=== PATIENT | male | born 1930 | race Caucasian/White ===

== ENCOUNTER 2016-11-29 14:45 | Inpatient (IN) | payer OTHER ==
[~2016-11-29] VITALS: Ht 182.9 cm; Wt 67.0 kg
[~2016-11-29 14:45] MED LIST: HYDROCODON-ACE1 EAC7 PO; NAPROXEN500 MG PO
[2016-11-29 15:13] LABS: EOSINOPHIL (%) 0 % (0-5); HEMATOCRIT 39.1 % (38.0-50.0); IMMATURE GRANULOCYTE COUNT 0.1 K/uL; INSTRUMENT ABS NEUTROPHIL CT 7.6 K/uL; LYMPHOCYTE COUNT 0.8 K/uL (1.0-2.8); MCH 31.3 PG (29.0-34.0); MCHC 37.3 G/DL (30.0-36.0); MCV 83.9 FL (86-99); MEAN PLAT.VOLUME 7.6 uM^3 (9.0-12.4); MONOCYTE (%) 5.4 % (3-12); MONOCYTE COUNT 0.5 K/uL (0-0.8); NEUTROPHIL (%) 84.2 % (45-76); NEUTROPHIL COUNT 7.6 K/uL (1.8-6.4); PLATELET COUNT 189 K/uL (156-360); RBC DIS.WIDTH-CV 12.1 % (11.8-14.6); RBC DIS.WIDTH-SD 35.4 % (39-53); RED BLOOD COUNT 4.66 M/uL (4.00-5.50); WHITE BLOOD COUNT 9.1 K/uL (4.1-10.2)
[2016-11-29 15:20] LABS: CHLORIDE 85 mEq/L (99-109); POTASSIUM 4.4 mEq/L (3.7-5.4)
[2016-11-29 15:22] LABS: GLUCOSE 197 mg/dL (70-99)
[2016-11-29 15:26] LABS: ANION GAP 16 MEQ/L (2-14); GFR ESTIMATE (CALCULATED) > 59 mL/min/; SODIUM 117 mEq/L (136-147)
[2016-11-29 15:27] LABS: UREA NITROGEN (BUN) 25 mg/dL (9-23)
[2016-11-29 15:49] LABS: TOTAL BILIRUBIN 0.9 mg/dL (0.0-1.0)
[2016-11-29 15:50] LABS: ALKALINE PHOSPHATASE 53 IU/L (3-129)
[2016-11-29 15:52] LABS: DIRECT BILIRUBIN 0.4 mg/dL (0.0-0.3)
[2016-11-29] MEDS ORDERED: JANUVIA100 MG PO (17:40)
[2016-11-29] MEDS ORDERED: TRAMADOL HCL50 MG PO (17:40)
[2016-11-29] MEDS ORDERED: MAGNESIUM400 M1 PO (17:40)
[2016-11-29] MEDS ORDERED: VASOTEC10 MG PO (17:41)
[2016-11-29 17:44] LABS: CHLORIDE 86 mEq/L (99-109); POTASSIUM 4.4 mEq/L (3.7-5.4); SODIUM 120 mEq/L (136-147)
[2016-11-29] MEDS ORDERED: DOXYCYCLINE HYC50 MG PO (17:44)
[2016-11-29 17:46] LABS: GLUCOSE 167 mg/dL (70-99)
[2016-11-29 17:47] LABS: ANION GAP 14 MEQ/L (2-14)
[2016-11-29] MEDS ORDERED: GLUCOPHAGE1000 MG PO (17:48)
[2016-11-29] MEDS ORDERED: PRILOSEC20 MG PO (17:49)
[2016-11-29] MEDS ORDERED: PRAVACHOL20 MG PO (17:49)
[2016-11-29 17:50] LABS: GFR ESTIMATE (CALCULATED) > 59 mL/min/
[2016-11-29] MEDS ORDERED: ALFALFA1 EACH PO (17:50)
[2016-11-29 17:51] LABS: UREA NITROGEN (BUN) 22 mg/dL (9-23)
[2016-11-29] MEDS ORDERED: SAW PALMETTO160 MG PO (17:51)
[2016-11-29] MEDS ORDERED: OMEGA-3 FISH O1 EAC3 PO (17:54)
[2016-11-29] MEDS ORDERED: VITAMIN E400 UNIT PO (17:55)
[2016-11-29] MEDS ORDERED: LOW DOSE ASPIRI81 M1 PO (17:55)
[2016-11-29] MEDS ORDERED: MOBIC7.5 MG PO (17:56)
[2016-11-29] MEDS ORDERED: ZINC50 M2 PO (17:56)
[2016-11-29] MEDS ORDERED: LUTEIN-ZEAXANT1 EACH PO (17:56)
[2016-11-29] MEDS ORDERED: VITAMIN D31000 UNIT PO (17:57)
[2016-11-29] MEDS ORDERED: B-COMPLEX-VITA1 EACH PO (17:57)
[2016-11-29] MEDS ORDERED: FOLIC ACID0.8 M1 PO (17:57)
[2016-11-29 21:17] LABS: SERUM ETHYL ALCOHOL < 10 mg/dL
[2016-11-29 22:51] VITALS: BP 164/70
[2016-11-30 00:01] LABS: CHLORIDE 90 mEq/L (99-109); POTASSIUM 4.5 mEq/L (3.7-5.4); SODIUM 121 mEq/L (136-147)
[2016-11-30 00:02] LABS: GLUCOSE 152 mg/dL (70-99)
[2016-11-30 00:04] LABS: ANION GAP 12 MEQ/L (2-14)
[2016-11-30 00:06] LABS: GFR ESTIMATE (CALCULATED) > 59 mL/min/
[2016-11-30 00:07] LABS: UREA NITROGEN (BUN) 22 mg/dL (9-23)
[2016-11-30 03:41] LABS: CHLORIDE 92 mEq/L (99-109); POTASSIUM 4.2 mEq/L (3.7-5.4); SODIUM 124 mEq/L (136-147)
[2016-11-30 03:43] LABS: GLUCOSE 123 mg/dL (70-99)
[2016-11-30 03:44] VITALS: BP 177/74
[2016-11-30 03:44] LABS: ANION GAP 12 MEQ/L (2-14)
[2016-11-30 03:47] LABS: GFR ESTIMATE (CALCULATED) > 59 mL/min/
[2016-11-30 03:48] LABS: UREA NITROGEN (BUN) 22 mg/dL (9-23)
[2016-11-30 05:18] LABS: HEMATOCRIT 37.5 % (38.0-50.0); MCH 31.4 PG (29.0-34.0); MCHC 36.5 G/DL (30.0-36.0); MCV 85.8 FL (86-99); MEAN PLAT.VOLUME 7.8 uM^3 (9.0-12.4); PLATELET COUNT 189 K/uL (156-360); RBC DIS.WIDTH-CV 12.5 % (11.8-14.6); RBC DIS.WIDTH-SD 36.9 % (39-53); RED BLOOD COUNT 4.37 M/uL (4.00-5.50); WHITE BLOOD COUNT 9.1 K/uL (4.1-10.2)
[2016-11-30 07:50] VITALS: BP 174/84
[2016-11-30 07:54] LABS: POINT-OF-CARE METER ID UU13113781
[2016-11-30 11:54] LABS: POINT-OF-CARE METER ID UU13113781
[2016-11-30 12:21] LABS: ADD MIUA? YES; BILIRUBIN NEGATIVE; BLOOD SMALL; COLOR YELLOW ((YELLOW)); GLUCOSE (STRIP) 50; KETONES 5; LEUKOCYTES NEGATIVE; NITRITE NEGATIVE; PROTEIN (STRIP) NEGATIVE; SPECIFIC GRAVITY 1.011 (1.000-1.030); UROBILINOGEN 0.2 MG/DL (0.2-1.0)
[2016-11-30 12:23] VITALS: BP 180/86
[2016-11-30 12:23] LABS: BACTERIA NONE SEEN /HPF; EPITHELIAL CELLS NONE SEEN /HPF; MUCUS NONE SEEN /LPF; RED BLOOD CELLS 30-40 /HPF (0-5); UCUL ADDED? NO; WHITE BLOOD CELLS 0-5 /HPF (0-5)
[2016-11-30 13:12] LABS: URIC ACID 3.6 mg/dL (3.1-9.2)
[2016-11-30 16:21] VITALS: BP 150/74
[2016-11-30 16:40] LABS: ANION GAP 8 MEQ/L (2-14); CHLORIDE 89 MEQ/L (99-109); GFR ESTIMATE (CALCULATED) > 59 mL/min/; GLUCOSE 172 mg/dL (70-99); POTASSIUM 3.9 MEQ/L (3.7-5.4); SAMPLE HEMOLYSIS CHECK 0; SAMPLE ICTERIC CHECK 0; SAMPLE LIPEMIA CHECK 0; SODIUM 121 MEQ/L (136-147); UREA NITROGEN (BUN) 22 mg/dL (9-23)
[2016-11-30 21:16] LABS: POINT-OF-CARE METER ID UU14188625
[2016-11-30 22:27] LABS: ANION GAP 9 MEQ/L (2-14); CHLORIDE 88 MEQ/L (99-109); GFR ESTIMATE (CALCULATED) > 59 mL/min/; GLUCOSE 168 mg/dL (70-99); POTASSIUM 4.1 MEQ/L (3.7-5.4); SAMPLE HEMOLYSIS CHECK 0; SAMPLE ICTERIC CHECK 0; SAMPLE LIPEMIA CHECK 0; SODIUM 122 MEQ/L (136-147); UREA NITROGEN (BUN) 23 mg/dL (9-23)
[2016-11-30 23:36] VITALS: BP 164/76
[2016-12-01 03:48] VITALS: BP 133/71
[2016-12-01 08:01] VITALS: BP 124/68
[2016-12-01 08:41] LABS: POINT-OF-CARE METER ID UU13113717
[2016-12-01 10:30] LABS: ANION GAP 10 MEQ/L (2-14); CHLORIDE 92 MEQ/L (99-109); GFR ESTIMATE (CALCULATED) > 59 mL/min/; POTASSIUM 3.9 MEQ/L (3.7-5.4); SAMPLE HEMOLYSIS CHECK 0; SAMPLE ICTERIC CHECK 0; SAMPLE LIPEMIA CHECK 0; SODIUM 128 MEQ/L (136-147); UREA NITROGEN (BUN) 20 mg/dL (9-23)
[2016-12-01 10:42] LABS: GLUCOSE 280 mg/dL (70-99)
[2016-12-01 12:00] VITALS: BP 140/74
[2016-12-01 16:02] VITALS: BP 118/68
[2016-12-01 18:43] LABS: CHLORIDE 97 mEq/L (99-109); POTASSIUM 4.3 mEq/L (3.7-5.4); SODIUM 130 mEq/L (136-147)
[2016-12-01 18:45] LABS: GLUCOSE 232 mg/dL (70-99)
[2016-12-01 18:46] LABS: ANION GAP 9 MEQ/L (2-14)
[2016-12-01 18:49] LABS: GFR ESTIMATE (CALCULATED) 56 mL/min/; UREA NITROGEN (BUN) 23 mg/dL (9-23)
[2016-12-01 21:20] VITALS: BP 118/62
[2016-12-01 23:50] VITALS: BP 122/64
[2016-12-02 07:22] VITALS: BP 102/56
[2016-12-02 10:03] LABS: ANION GAP 5 MEQ/L (2-14); CHLORIDE 98 MEQ/L (99-109); GFR ESTIMATE (CALCULATED) 51 mL/min/; GLUCOSE 182 mg/dL (70-99); POTASSIUM 4.2 MEQ/L (3.7-5.4); SAMPLE HEMOLYSIS CHECK 0; SAMPLE ICTERIC CHECK 0; SAMPLE LIPEMIA CHECK 0; SODIUM 132 MEQ/L (136-147); UREA NITROGEN (BUN) 30 mg/dL (9-23)
[2016-12-02 11:10] VITALS: BP 142/78
[2016-12-02] MEDS ORDERED: DOXAZOSIN MESYLA4 MG PO (12:15)
[2016-12-02] MEDS ORDERED: KADIAN10 MG PO (12:15)
[2016-12-02] MEDS ORDERED: GABAPENTIN300 MG PO (12:15)
[2016-12-02] MEDS ORDERED: UROXATRAL10 MG PO (12:23)
[2016-12-02] MEDS ORDERED: PROSCAR5 MG PO (12:23)
[2016-12-02] MEDS ORDERED: ENALAPRIL MALEAT5 MG PO (12:37)
== END 2016-12-02 14:43 | disposition home health service (06) | DRG 74 ==
LOC: EME 14:45 → EDOF 20:13 → 5SOUTH 20:13 → 4EAST 20:13 → ENRESERV 20:19 → 4EAST 22:26 → ENRESERV 11-30 14:35 → 5SOUTH 11-30 15:44
PROVIDERS: Emergency Medicine; Hospitalist; Internal Medicine
DX: B02.29 Other postherpetic nervous system involvement (principal); E22.2 Syndrome of inappropriate secretion of antidiuretic hormone; E87.2 Acidosis; H57.02 Anisocoria; E11.9 Type 2 diabetes mellitus without complications; E78.5 Hyperlipidemia, unspecified; H35.30 Unspecified macular degeneration; I10 Essential (primary) hypertension; K59.00 Constipation, unspecified; N40.1 Benign prostatic hyperplasia with lower urinary tract symptoms; R33.9 Retention of urine, unspecified; X58.XXXA Exposure to other specified factors, initial encounter; S91.302A Unspecified open wound, left foot, initial encounter; Z23 Encounter for immunization
CPT/HCPCS: 70450; 71010; 80048; 80048 91; 80076; 80400; 81003; 82436; 82533 91; 82948; 83930; 83935; 84133; 84300; 84443; 84550; 85025; 85027; 97530 GO; 99281; 99285; G0480; J0834; J1644; J2270; J7030